=== PATIENT | female | born 1990 | race Hispanic/Latino ===

== ENCOUNTER 2024-11-17 10:51 | Emergency (ER) | payer OTHER ==
[~2024-11-17] VITALS: Ht 152.4 cm; Wt 79.8 kg
[2024-11-17 11:39] VITALS: PULSE 78; RESP 18; TEMP 98.1; O2SAT 100
[2024-11-17] MEDS ORDERED: MECLIZINE HCL12.5 MG PO (12:18)
[2024-11-17] MEDS: MECLIZINE HCL 12.5 MG TAB PO ONE (12:18)
== END 2024-11-17 12:38 | disposition home or self-care (01) ==
LOC: ER 12:01
DX: R42 Dizziness and giddiness (principal); R51.9 Headache, unspecified; H53.8 Other visual disturbances; R11.0 Nausea
CPT/HCPCS: 99282